=== PATIENT | female | born 1950 | race Caucasian/White ===

== ENCOUNTER 2022-01-07 13:28 | Emergency (ER) | payer OTHER, SELFPAY ==
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
[2022-01-07 13:31] VITALS: BP 168/86; PULSE 102; RESP 18; TEMP 36.8; O2SAT 96; BMI 31.1
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
[2022-01-07] MEDS: Cyclobenzaprine HCl 10 MG TABLET PO (15:40)
[2022-01-07] MEDS: Ketorolac Tromethamine 30 MG/ML VIAL IM (15:40)
[2022-01-07 18:23] VITALS: BP 183/72; PULSE 62; RESP 16; TEMP 36.8; O2SAT 100
== END 2022-01-07 19:35 | disposition home or self-care (01) ==
PROVIDERS: Emergency Provider Student in an Organized Health Care Education/Training Program
DX: Z04.1 Encounter for examination and observation following transport accident (principal); M54.2 Cervicalgia; M54.50 Low back pain, unspecified; R42 Dizziness and giddiness
CPT/HCPCS: 70450; 72125; 72128; 72131; 96372; 99283; 99284; J1885